=== PATIENT | female | born 1995 | race Two or more races ===

== ENCOUNTER 2017-11-19 20:51 | Emergency (ER) | payer OTHER ==
[2017-11-19] MEDS ORDERED: DIPHENHYDRAMINE HCL 50 MG/ML VIAL IV ONE (22:51)
[2017-11-19] MEDS ORDERED: NORMAL SALINE 1000 ML 1,000 ML IV ONE (22:51)
[2017-11-19] MEDS ORDERED: METOCLOPRAMIDE HCL INJ/PF 10 MG/2 ML SDV IV ONE (22:52)
--- NOTE | 2017-11-19 22:57 | ER Document Report ---
ED General - General Mode of Arrival: Ambulatory Information source: Patient TRAVEL OUTSIDE OF THE [place] IN LAST 30 DAYS: No - HPI Onset: Yesterday Onset/Duration: Gradual Severity: Moderate Pain Level: 4 Associated symptoms: Nausea, Vomiting Exacerbated by: Denies Relieved by: Denies Similar symptoms previously: Yes Recently seen / treated by doctor: No <PAM LALA - Last Filed: 11/19/17 23:31> <BRIGHT THOMPSON - Last Filed: 11/20/17 00:51> - General Chief Complaint: Nausea/Vomiting Stated Complaint: VOMITING Time Seen by Provider: 11/19/17 22:45 Notes: Patient presents to the ED with complaints of migraine headache, nausea, vomiting, and myalgias x 1 day. Patient says her boyfriend has similar symptoms. Patient says she has a hx of migraine headaches. Todays headache is similar to previous. Throbbing sensation behind the eyes with radiation to the occipital area. Patient has taken tylenol and motrin with minimal relief of symptoms. She's not on any other medications at this time. Patient says that she does have nausea and vomiting with her headaches occasionally. She denies any abdominal pain, diarrhea, constipation, dysuria, hematuria, vaginal bleeding , or vaginal discharge. (PAM LALA) - Related Data Allergies/Adverse Reactions: No Known Allergies Allergy (Unverified 11/19/17 20:53) Past Medical History - Social History Smoking Status: Never Smoker Family History: Reviewed & Not Pertinent <PAM LALA - Last Filed: 11/19/17 23:31> Review of Systems - Review of Systems Constitutional: No symptoms reported EENT: No symptoms reported Cardiovascular: No symptoms reported Respiratory: No symptoms reported Gastrointestinal: Nausea, Vomiting Genitourinary: No symptoms reported Female Genitourinary: No symptoms reported Musculoskeletal: No symptoms reported Skin: No symptoms reported Neurological/Psychological: No symptoms reported -: Yes All other systems reviewed and negative <PAM LALA - Last Filed: 11/19/17 23:31> Physical Exam - Vital signs Interpretation: Normal <PAM LALA - Last Filed: 11/19/17 23:31> <BRIGHT THOMPSON - Last Filed: 11/20/17 00:51> - Vital signs Vitals: Temp Pulse Resp BP Pulse Ox 98.5 F 98 18 124/77 99 11/19/17 20:57 11/19/17 20:57 11/19/17 20:57 11/19/17 20:57 11/19/17 20:57 - Notes Notes: PHYSICAL EXAMINATION: GENERAL: Well-appearing, well-nourished and in no acute distress. HEAD: Atraumatic, normocephalic. EYES: Pupils equal round and reactive to light, extraocular movements intact, conjunctiva are normal. ENT: Nares patent, oropharynx clear without exudates. Moist mucous membranes. NECK: Normal range of motion, supple without lymphadenopathy. No meningeal signs. LUNGS: Breath sounds clear to auscultation bilaterally and equal. No wheezes rales or rhonchi. HEART: Regular rate and rhythm without murmurs ABDOMEN: Soft, nontender, nondistended abdomen. No guarding, no rebound. No masses appreciated. Female : deferred Musculoskeletal: Normal range of motion, no pitting or edema. No cyanosis. NEUROLOGICAL: Cranial nerves grossly intact. Normal speech, normal gait. Normal sensory, motor exams PSYCH: Normal mood, normal affect. SKIN: Warm, Dry, normal turgor, no rashes or lesions noted. (PAM LALA ) Course <PAM LALA - Last Filed: 11/19/17 23:31> - Laboratory Result Diagrams: 11/19/17 23:44 11/20/17 00:10 <BRIGHT THOMPSON - Last Filed: 11/20/17 00:51> - Re-evaluation Re-evalutation: 11/19/17 23:35 Patient given IV fluid bolus, benadryl, and reglan. Labs pending. (PAM LALA) 11/20/17 00:49 Sign-out from Dr. Lala. 22-year-old female with history of headaches presents with her usual headache. She was given a headache cocktail and she is feeling much better. Her headache has completely resolved. Blood work is unremarkable, other than a slight leukocytosis. Her urinalysis shows ketones and she is not . She has absolutely no signs of meningitis, SAH or ICH at this time. After IV fluids, she is tolerating fluids by mouth. Instructed her to stay hydrated and follow-up with her current care physician. (BRIGHT THOMPSON) - Vital Signs Vital signs: Temp Pulse Resp BP Pulse Ox 98.5 F 98 18 124/77 99 11/19/17 20:57 11/19/17 20:57 11/19/17 20:57 11/19/17 20:57 11/19/17 20:57 - Laboratory Laboratory results interpreted by me: 11/19/17 11/19/17 23:44 23:44 WBC 11.5 H Seg Neutrophils % 82.3 H Lymphocytes % 10.8 L Absolute Neutrophils 9.5 H Urine Protein 30 H Urine Ketones 80 H Urine Blood MODERATE H Urine Urobilinogen 4.0 H Discharge <PAM LALA A - Last Filed: 11/19/17 23:31> <BRIGHT THOMPSON - Last Filed: 11/20/17 00:51> - Discharge Clinical Impression: Migraine headache Qualifiers: Migraine type: unspecified Status migrainosus presence: without status migrainosus Intractability: not intractable Qualified Code(s): G43.909 - Migraine, unspecified, not intractable, without status migrainosus Condition: Good Disposition: HOME, SELF-CARE Instructions: Migraine Headache ([facility]) Referrals: HANNA PRICE MD [ACTIVE STAFF] - Follow up as needed ANGUS CARTER MD [COMMUNITY BASED STAFF] - Follow up as needed
[2017-11-20] LABS: ABSOLUTE EOSINOPHILS # (AUTO) 0.1 10^3/uL (0.0-0.6); ABSOLUTE LYMPHOCYTES (AUTO) 1.2 10^3/uL (0.5-4.7); ABSOLUTE MONOCYTES (AUTO) 0.7 10^3/uL (0.1-1.4); ABSOLUTE NEUT (AUTO) 9.5 10^3/uL (1.7-8.2); BASOPHILS % (AUTO) 0.4 % (0-2); EOSINOPHILS % (AUTO) 0.7 % (0-6); HEMATOCRIT 42.7 % (36.0-47.0); HEMOGLOBIN 14.6 g/dL (12.0-15.5); LYMPHOCYTES % (AUTO) 10.8 % (13-45); MEAN CORPUSCULAR HEMOGLOBIN 29.6 pg (27.0-33.4); MEAN CORPUSCULAR HGB CONC 34.3 g/dL (32.0-36.0); MEAN CORPUSCULAR VOLUME 86 fl (80-97); MONOCYTES % (AUTO) 5.8 % (3-13); PLATELET COUNT 203 10^3/uL (150-450); RED BLOOD COUNT 4.95 10^6/uL (3.72-5.28); RED CELL DISTRIBUTION WIDTH 13.9 % (11.5-14.0); SEGMENTED NEUTROPHILS % (AUTO) 82.3 % (42-78); TOTAL CELLS COUNTED % (AUTO) 100 %; WHITE BLOOD COUNT 11.5 10^3/uL (4.0-10.5)
[2017-11-20 00:10] LABS: APPEARANCE,URINE SLIGHTLY-CLOUDY; BILIRUBIN,URINE NEGATIVE (NEGATIVE); COLOR,URINE AMBER; GLUCOSE, URINE NEGATIVE (NEGATIVE); KETONES,URINE 80 mg/dL (NEGATIVE); LEUKOCYTE ESTERASE,URINE NEGATIVE (NEGATIVE); NITRITE,URINE NEGATIVE (NEGATIVE); PROTEIN,URINE 30 mg/dL (NEGATIVE); URINE SPECIFIC GRAVITY 1.032
[2017-11-20 00:38] LABS: ALANINE AMINOTRANSFERASE 20 U/L (9-52); ALBUMIN 3.9 g/dL (3.5-5.0); ALKALINE PHOSPHATASE 64 U/L (38-126); ANION GAP 12 (5-19); ASPARTATE AMINO TRANSFERASE 17 U/L (14-36); BILIRUBIN,DIRECT 0.3 mg/dL (0.0-0.4); BILIRUBIN,TOTAL 0.7 mg/dL (0.2-1.3); BLOOD UREA NITROGEN 11 mg/dL (7-20); CALCIUM 8.7 mg/dL (8.4-10.2); CARBON DIOXIDE 23 mmol/L (22-30); CHLORIDE 106 mmol/L (98-107); GLUCOSE 78 mg/dL (75-110); POTASSIUM 3.7 mmol/L (3.6-5.0); SODIUM 140.8 mmol/L (137-145); TOTAL PROTEIN 6.5 g/dL (6.3-8.2)
[2017-11-20 01:11] VITALS: BP 106/59
== END 2017-11-20 01:11 | disposition home or self-care (01) ==
LOC: ER 20:51
DX: G43.909 Migraine, unspecified, not intractable, without status migrainosus (principal); R11.2 Nausea with vomiting, unspecified; M79.1 Myalgia
CPT/HCPCS: 99283; 96361; 96374; 96375; 36415; 85025; 81025; 80053; 81001; J1200; J2765; J7030